=== PATIENT | male | born 2000 | race Caucasian/White ===

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

== ENCOUNTER → 2022-01-17 10:26 | Outpatient (BNVA) | payer OTHER, SELFPAY | PROVIDERS: PCP Nurse Practitioner Family; Visit Provider Nurse Practitioner Family | DX: N52.9 Male erectile dysfunction, unspecified (principal); R68.82 Decreased libido | CPT/HCPCS: 82040; 83001; 83002; 84146; 84270; 84403 ==

== ENCOUNTER 2022-02-22 07:03 | Outpatient (CLI) | payer OTHER, SELFPAY ==
--- NOTE | 2022-02-22 07:20 | XR_ITS ---
WS: [id number] XR thoracic spine 2V [id number] REASON FOR EXAM: Pain FINDINGS: Normal thoracic curvature. No thoracic vertebral body abnormality Normal intervertebral disc spaces. XR/XR thoracic spine 2V [id number] IMPRESSION: No significant abnormality.
== END 2022-02-22 07:04 | disposition home or self-care (01) ==
LOC: RAD 07:05
PROVIDERS: PCP Nurse Practitioner Family; Visit Provider Internal Medicine
DX: M54.6 Pain in thoracic spine (principal); R79.89 Other specified abnormal findings of blood chemistry
CPT/HCPCS: 72070

== ENCOUNTER 2022-02-22 07:03 | Outpatient (CLI) | payer OTHER, SELFPAY ==
--- NOTE | 2022-02-22 07:15 | MR_ITS ---
WS: [id number] MRI HEAD WITHOUT AND WITH GADOLINIUM ENHANCEMENT PITUITARY PROTOCOL. TECHNIQUE: Sagittal T1, T2 axial, T2 axial FLAIR, axial susceptibility weighted imaging, axial diffus ion weighted images, and coronal T2 images were obtained. Pre and post-T1 axial and post T1 coronal i mages. ADC and FSPGR images. High-resolution coronal T1 and T2 and postgadolinium imaging with attent ion to the pituitary. Dynamic pituitary imaging performed. CLINICAL INFORMATION: central hypogonadism COMPARISON: CT November 13, 2020 FINDINGS: No evidence of restricted diffusion to suggest acute ischemia. Ventricular system and basal cisterns are patent. No suspicious intracranial signal abnormalities. Normal posterior fossa. Normal vascular flow voids at the skull base. No extra-axial fluid collections. No evidence of mass or mass effect. M ild mucosal thickening in the ethmoid air cells and frontal sinuses. Polypoid retention cyst or polyp s in the maxillary sinuses with partial opacification. Visualized orbits appear normal. No hemosiderin on the susceptibly weighted images. Normal optic chiasm and pituitary infundibulum. Temporal lobes and hippocampal formations are normal in appearance. Normal cavernous sinuses and Meckel's cave. Pituitary is normal in appearance. Normal enhancing pituitary tissue. No evidence of sellar/supersellar mass. No evidence of hypoenhancing micr oadenoma. No abnormal intracranial enhancement. Normal dural venous sinuses. MR/MR pituitary wo/w con* [id number] IMPRESSION: 1. Pituitary is normal in appearance. No evidence of sellar or suprasellar mas s. No evidence of microadenoma. 2. No suspicious intracranial signal abnormalities. 3. No restricted diffusion to suggest acute ischemia. 4. No hemosiderin on susceptibly weighted images. 5. Prominent retention cysts or polyps in the maxillary sinuses bilaterally wi th partial opacification. 6. No other remarkable findings.
[2022-02-22] MEDS: gadobenate dimeglumine 20 mL vial IV (09:47)
== END 2022-02-22 07:04 | disposition home or self-care (01) ==
LOC: RAD 07:05
PROVIDERS: PCP Nurse Practitioner Family; Visit Provider Internal Medicine
DX: R79.89 Other specified abnormal findings of blood chemistry (principal)
CPT/HCPCS: 70553

== ENCOUNTER 2022-02-23 07:22 | Outpatient (CLI) | payer OTHER, SELFPAY ==
[2022-02-23 08:53] LABS: Ferritin 79 ng/mL (30-400); Homocysteine 5.86; Iron 56 ug/dL (59-158); Prostate Specific Antigen 0.494 ng/mL (0-4); Vitamin B12 568 pg/mL (232-1245)
[2022-02-23 08:56] LABS: Folate Level 12.8 ng/mL (4.5-32.2)
[2022-02-23 09:16] LABS: Testosterone Total 139.6 ng/dL (3-685)
== END 2022-02-23 07:23 | disposition home or self-care (01) ==
PROVIDERS: PCP Nurse Practitioner Family; Visit Provider Internal Medicine
DX: F34.1 Dysthymic disorder (principal); Z83.49 Family history of other endocrine, nutritional and metabolic diseases; R68.82 Decreased libido; R79.89 Other specified abnormal findings of blood chemistry
CPT/HCPCS: 36415; 82607; 82728; 82746; 83090; 83540; 84153; 84403; 84439

== ENCOUNTER 2023-02-26 14:43 | Emergency (ER) | payer BC, SELFPAY ==
[2023-02-26 14:50] VITALS: BP 166/72; PULSE 92; RESP 18; TEMP 36.8; O2SAT 98; BMI 27.1
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
[2023-02-26] MEDS: HYDROcodone-acetaminophen 5-325 mg Tablet 1 TAB PO (18:12)
--- NOTE | 2023-02-27 10:22 | DCPLANNER ---
Addendum entered by Bonnie Small 03/06/23 15:12: Patient did attend appointment scheduled with ortho. Addendum entered by Bonnie Small 02/28/23 11:42: Patient has a follow up appointment scheduled for , March 01, 2023 at 3:15 with Alex Rodarte at ortho. Original Note: branch lending manager had message to schedule a follow up appointment for patient with ortho. branch lending manager sent patients information to the front office staff at ortho. Patients information will be printed and reviewed. Clinic will call patient with appointment information.
== END 2023-02-26 18:28 | disposition home or self-care (01) ==
PROVIDERS: Emergency Provider Nurse Practitioner Family; PCP Family Medicine
DX: S52.125A Nondisplaced fracture of head of left radius, initial encounter for closed fracture (principal); S62.025A Nondisplaced fracture of middle third of navicular [scaphoid] bone of left wrist, initial encounter for closed fracture; V89.2XXA Person injured in unspecified motor-vehicle accident, traffic, initial encounter
CPT/HCPCS: 73080; 73110; 99283

== ENCOUNTER → 2023-03-01 14:56 | Outpatient (BNVA) | payer BC, SELFPAY | PROVIDERS: PCP Family Medicine; Referring Provider Physician Assistant; Visit Provider Physician Assistant | DX: S62.002A Unspecified fracture of navicular [scaphoid] bone of left wrist, initial encounter for closed fracture; S52.125A Nondisplaced fracture of head of left radius, initial encounter for closed fracture; V49.9XXA Car occupant (driver) (passenger) injured in unspecified traffic accident, initial encounter | CPT/HCPCS: 73080; 73110 ==

== ENCOUNTER 2023-03-01 16:13 | Outpatient (CLI) | payer BC, SELFPAY | END 2023-03-01 16:14 | disposition home or self-care (01) | LOC: SPT 16:14 | PROVIDERS: PCP Family Medicine; Visit Provider Physician Assistant | DX: S62.002A Unspecified fracture of navicular [scaphoid] bone of left wrist, initial encounter for closed fracture (principal); X58.XXXA Exposure to other specified factors, initial encounter | CPT/HCPCS: 97760; L3984 ==

== ENCOUNTER 2023-03-06 15:55 | Outpatient (CLI) | payer BC, SELFPAY ==
--- NOTE | 2023-03-06 16:45 | MR_ITS ---
WS: [id number] MRI LEFT ELBOW WITHOUT CONTRAST. COMPARISON: Radiographs 02/26/2023 and 03/01/2023 Multiplanar, multisequence imaging is performed without contrast. Moderate amount of marrow edema in the proximal radius including the radial head, neck and proximal d iaphysis. There is a nondisplaced healing fracture involving the radial neck. Very minimal impaction along the fracture line. No significant displacement. Moderate persistent joint effusion. There is ad ditional small amount of marrow edema in the lateral humeral epicondyle. No fracture is identified. T he common extensor tendon and the radial collateral ligament appear intact. Normal ulnar collateral l igament. No soft tissue abnormalities. IMPRESSION: 1. Healing radial neck fracture without significant displacement. 2. Posttraumatic marrow edema in the lateral humeral epicondyle. No fracture. 3. Moderate-sized joint effusion.
--- NOTE | 2023-03-06 17:30 | MR_ITS ---
WS: [id number] MRI LEFT WRIST WITHOUT CONTRAST. COMPARISON: 03/01/2023 Multiplanar, multisequence imaging is performed without contrast. Moderate amount of marrow edema throughout the scaphoid. Marrow edema is most significant within the mid scaphoid. Edema involves approximately 50% of the scaphoid. There is a nondisplaced fracture in t he proximal third with no displacement. At this point there is no necrosis evident. Scapholunate inte rval is normal. Carpal rows are normal. No additional marrow edema. Distal radius and ulna are normal . No fluid in the distal radial ulnar joint. TFCC appears appropriate. IMPRESSION: Nondisplaced scaphoid fracture in the proximal third with marrow edema throughout nearly 50% of the s caphoid.
== END 2023-03-06 15:56 | disposition home or self-care (01) ==
PROVIDERS: PCP Family Medicine; Visit Provider Physician Assistant
DX: S52.135D Nondisplaced fracture of neck of left radius, subsequent encounter for closed fracture with routine healing (principal); S62.035D Nondisplaced fracture of proximal third of navicular [scaphoid] bone of left wrist, subsequent encounter for fracture with routine healing; X58.XXXD Exposure to other specified factors, subsequent encounter; M25.422 Effusion, left elbow
CPT/HCPCS: 73221

== ENCOUNTER → 2023-03-16 13:45 | Outpatient (BNVA) | payer BC, SELFPAY | PROVIDERS: Visit Provider Family Medicine | DX: R79.89 Other specified abnormal findings of blood chemistry (principal); F90.2 Attention-deficit hyperactivity disorder, combined type; F34.1 Dysthymic disorder; F41.1 Generalized anxiety disorder; F50.81 Binge eating disorder | CPT/HCPCS: 80053; 82040; 83001; 83002; 83036; 84270; 84403; 84439; 84443; 85025 ==

== ENCOUNTER 2023-04-19 13:09 | Outpatient (RCR) | payer BC, SELFPAY | END 2023-05-15 23:59 | disposition home or self-care (01) | LOC: SOT 13:09 | PROVIDERS: Visit Provider Student in an Organized Health Care Education/Training Program | DX: S52.135D Nondisplaced fracture of neck of left radius, subsequent encounter for closed fracture with routine healing (principal); S52.125D Nondisplaced fracture of head of left radius, subsequent encounter for closed fracture with routine healing; X58.XXXD Exposure to other specified factors, subsequent encounter | CPT/HCPCS: 97110; 97165; 97530 ==

== ENCOUNTER → 2023-04-24 09:27 | Outpatient (BNVA) | payer BC, SELFPAY | PROVIDERS: Visit Provider Student in an Organized Health Care Education/Training Program | DX: S62.002D Unspecified fracture of navicular [scaphoid] bone of left wrist, subsequent encounter for fracture with routine healing; S52.132D Displaced fracture of neck of left radius, subsequent encounter for closed fracture with routine healing; X58.XXXD Exposure to other specified factors, subsequent encounter | CPT/HCPCS: 73080; 73110 ==

== ENCOUNTER 2023-04-24 10:48 | Outpatient (CLI) | payer BC, SELFPAY | END 2023-04-24 10:49 | disposition home or self-care (01) | LOC: SPT 10:49 | PROVIDERS: Visit Provider Student in an Organized Health Care Education/Training Program | DX: Z46.89 Encounter for fitting and adjustment of other specified devices (principal); S62.009D Unspecified fracture of navicular [scaphoid] bone of unspecified wrist, subsequent encounter for fracture with routine healing; X58.XXXD Exposure to other specified factors, subsequent encounter | CPT/HCPCS: 97760; L3908 ==

== ENCOUNTER → 2023-05-15 09:49 | Outpatient (BNVA) | payer BC, SELFPAY | PROVIDERS: Visit Provider Student in an Organized Health Care Education/Training Program | DX: S62.002A Unspecified fracture of navicular [scaphoid] bone of left wrist, initial encounter for closed fracture; S52.132A Displaced fracture of neck of left radius, initial encounter for closed fracture; X58.XXXA Exposure to other specified factors, initial encounter | CPT/HCPCS: 73080; 73100 ==

== ENCOUNTER → 2023-07-03 10:04 | Outpatient (BNVA) | payer BC, SELFPAY | PROVIDERS: Visit Provider Student in an Organized Health Care Education/Training Program | DX: S62.002A Unspecified fracture of navicular [scaphoid] bone of left wrist, initial encounter for closed fracture; S52.132A Displaced fracture of neck of left radius, initial encounter for closed fracture; X58.XXXA Exposure to other specified factors, initial encounter | CPT/HCPCS: 73080; 73110 ==

== ENCOUNTER → 2023-08-01 15:20 | Outpatient (BNVA) | payer BC, SELFPAY | PROVIDERS: Visit Provider Family Medicine | DX: R03.0 Elevated blood-pressure reading, without diagnosis of hypertension (principal); R06.02 Shortness of breath | CPT/HCPCS: 71046 ==

== ENCOUNTER 2024-04-07 15:00 | Emergency (ER) | payer BC, SELFPAY ==
[2024-04-07 15:11] VITALS: BP 156/74; PULSE 90; RESP 16; TEMP 36.7; O2SAT 97; BMI 25.0
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
[2024-04-07 15:56] LABS: Basophils # 0.1 10^3/uL (0.0-0.1); Basophils % 1.4 %; Eosinophils # 0.6 10^3/uL (0.0-0.8); Eosinophils % 6.2 %; Hematocrit 41.9 % (37-53); Lymphocytes # 1.3 10^3/uL (0.8-4.8); Lymphocytes % 13.8 %; Mean Corpuscular HGB Conc 34.1 g/dL (30-55); Mean Corpuscular Hemoglobin 30.2 pg (27-33); Mean Corpuscular Volume 88.4 fl (82-101); Mean Platelet Volume 9.8 fL (7.4-10.4); Monocytes # 0.8 10^3/uL (0.2-0.9); Monocytes % 8.3 %; Neutrophils # 6.41 10^3/uL (1.8-7.7); Neutrophils % 70.1 %; Nucleated Red Blood Cells % 0 %; Platelet Count 245 10^3/cmm (157-399); Red Blood Count 4.74 10^6/uL (3.85-5.65); Red Cell Distribution Width 14.1 % (12.1-15.1); White Blood Count 9.15 10^3/uL (3.29-11.43)
[2024-04-07 16:13] LABS: Alanine Aminotransferase 17 U/L (0-41); Albumin Level 4.2 g/dL (3.5-5.2); Alkaline Phosphatase 48 U/L (40-130); Anion Gap 15.1 (5-19); Aspartate Amino Transferase 22 U/L (0-40); Blood Urea Nitrogen 8 mg/dL (6-20); Calcium 9.1 mg/dL (8.5-10.5); Carbon Dioxide 26 mmol/L (22-29); Chloride 105 mmol/L (98-107); Globulin 2.5 g/dL (1.3-4.6); Glomerular Filtration Rate 120.9 mL/min (90-130); Glucose 119 mg/dL (65-115); Osmolality Calculated 293 mOsm/kg (285-295); Potassium 4.1 mmol/L (3.5-5.1); Sodium 142 mmol/L (136-145); Total Bilirubin 0.7 mg/dL (0.15-1.2); Total Protein 6.7 g/dL (6.6-8.7)
[2024-04-07 16:14] LABS: Acetaminophen < 5.0 ug/mL (10-30); Alcohol Level < 10 mg/dL (0-10); Salicylate < 0.3 mg/dL (3-10)
[2024-04-07 17:20] VITALS: BP 149/83; PULSE 89; RESP 16; O2SAT 95
== END 2024-04-07 17:19 | disposition home or self-care (01) ==
PROVIDERS: Emergency Provider Family Medicine
DX: S63.501A Unspecified sprain of right wrist, initial encounter (principal); Z87.891 Personal history of nicotine dependence; S00.81XA Abrasion of other part of head, initial encounter; Y04.8XXA Assault by other bodily force, initial encounter
CPT/HCPCS: 36415; 70450; 73110; 80053; 80307; 85025; 99284

== ENCOUNTER 2025-05-21 07:34 | Emergency (ER) | payer OTHER, SELFPAY ==
[2025-05-21 07:43] VITALS: BP 147/98; PULSE 102; RESP 14; TEMP 36.8; O2SAT 98
--- OUTSIDE RECORDS SUMMARY | 2025-05-21 07:43 | XMS_ITS | Clinical Summary ---
Author Organization [facility] Address [address] [place] [address] Phone Care Team Providers Care Erection Shop Supervisor Name Role Phone Unavailable Primary Care Provider Unavailabl e Allergies Active Allergy Reactions Criticality Noted Date Comments Duloxetine Hypertension Medium 09/17/2023 Sulfa (Sulfonamide Antibiotics) Other (See Comments) 09/17/2023 Only had it in the form of eye drops and said it almost caused me to lose my eye. Medications albuterol sulfate HFA 90 mcg/actuation aerosol inhaler Take 2 Puffs by inhalation every 6 hours as needed for Shortness of Breath or Wheezing. 8.5 Gram 4 Active benzocaine-ment hol (Cepacol Sore Throat, valerie-men,) 15-3.6 mg Lozenge 1 Each by Mouth/Throat route every 2 hours as needed for Pain. 30 Lozenge 4 Active lisdexamfetamin e (Vyvanse) 40 mg capsule Take 1 Capsule (40 mg) by mouth daily in the morning. 30 Capsule 04/02/2024 8:20 PM CDT 4 Active lisdexamfetamin e (VYVANSE) 40 mg capsule Take 1 Capsule (40 mg) by mouth daily in the morning. Max Daily Amount: 40 mg 30 Capsule 05/02/2024 8:29 AM CDT 4 Active lisdexamfetamin e (VYVANSE) 30 mg capsule Take one(1) capsule by mouth daily at noon. 30 Capsule 10/14/2024 11:11 AM CDT Active Active Problems No known active problems Encounters Date Type Department Care Team Description 05/13/2025 External Device Data [facility] Provider, Abstract 05/12/2025 External Device Data [facility] Provider, Abstract 05/06/2025 External Device Data [facility] Provider, Abstract 04/28/2025 External Device Data [facility] Provider, Abstract 03/17/2025 External Device Data [facility] Provider, Abstract 03/03/2025 External Device Data [facility] Provider, Abstract 02/18/2025 External Device Data [facility] Provider, Abstract from Last 3 Months Immunizations Immunization Administration Dates Next Due (ADACEL/BOOSTRIX)(10 YR UP) TDAP VACCINE, 0.5ML, IM 02/22/2023 Social History Tobacco Use Types Packs/Day Years Used Date Smoking Tobacco: Never Smokeless Tobacco: Never Tobacco Cessation:Counseling Given: Not Answered Alcohol Use Standard Drinks/Week Comments Never 0 (1 standard drink = 0.6 oz pur e alcohol) Feeling Safe Answer Date Recorded Are you in a relationship wi th someone who hurts you emotionally and/or physically? 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 Gender Identity Not on file Sexual Orientation Not on file Last Filed Vital Signs Vital Sign Reading Time Taken Comments Blood Pressure 141/76 02/10/2024 2:00 PM CDT Pulse 102 02/10/2024 2:50 PM CDT Temperature 37.9 C (100.3 F) 02/10/2024 2:50 PM CDT Respiratory Rate 16 02/10/2024 11:5 9 AM CDT Oxygen Saturation 98% 02/10/2024 2:50 PM CDT Inhaled Oxygen Concentration - - Weight 89.7 kg (197 lb 12.8 oz) 024 11:59 AM CDT Height 182.9 cm (6') 02/10/2024 11:59 AM CDT Body Mass Index 26.83 02/10/2024 11:59 AM CDT Plan of Treatment Health Maintenance Due Date Last Done Comments HPV VACCINES (1 - Male 3-dose series) 2017 HEPATITIS B VACCINES (1 of 3 - 19+ 3-dose series) 01/14 INFLUENZA VACCINE (#1) 2025 DTAP/TDAP/TD VACCINES (2 - Td or Tdap) 02/22/2033 Insurance RX [employer] Member Subscriber Plan / Payer (Ef fective for All Dates) Name:Mindy Cedeno Relation to Subscriber:Self Name:Mindy Cedeno Subscriber ID:Not on file Payer ID:Not on file Type:Not on file Address: [place] Member Subscriber Plan / Payer (Ef fective 2023-Present) Name:Mindy Cedeno Relation to Subscriber:Self Name:Mindy Cedeno Payer ID:Not on file Group ID:Not on file Type:Other [address] [place]
--- OUTSIDE RECORDS SUMMARY | 2025-05-21 07:43 | XMS_ITS | Encounter Summary ---
Author Organization [facility] Address [address] [place] [address] Care Team Providers Care Central Sterilization Technician Name Role Phone Unavailable Primary Care Provider Unavailabl e Encounter Details Date Type Department Care Team (Late st Contact Info) Description 05/13/2025 External Device Data [facility] Provider, Abstract NO ADDRESS ON FILE Social History Tobacco Use Types Packs/Day Years Used Date Smoking Tobacco: Never Smokeless Tobacco: Never Alcohol Use Standard Drinks/Week Comments Never 0 (1 standard drink = 0.6 oz pur e alcohol) Feeling Safe Answer Date Recorded Are you in a relationship wi th someone who hurts you emotionally and/or physically? 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
--- NOTE | 2025-05-21 07:45 | ED_ITS ---
HPI - Dental/Oral General: Chief complaint: Dental/Oral Stated complaint: Rt side face swollen Time Seen by Provider: 05/21/25 07:35 History of Present Illness: 25-year-old male medical history signifi cant for dental issues in the past and multiple tooth extractions for braces, presenting emergency department with 3- day history of right lower dental pain and a 1 day history starting this morning of external jaw/facial swelling, taking leftover Augmentin from her previous prescription over the last 3 days twice daily without improvement, no fever, able to swallow and speak without issue, no difficulty breathing, no trauma Related Data Previous Rx's ?Medication ?Instructions ?Recorded citalopram 20 mg tablet (Celexa) 20 mg PO DAILY #30 ta bs 04/13/25 trazodone 50 mg tablet 50 mg PO .HS #30 tabs lisdexamfetamine 30 mg capsule 30 mg PO DAILY 30 days #30 caps 04/17/25 lisdexamfetamine 40 mg capsule 40 mg PO QAM 30 days #3 0 caps 04/17/25 clindamycin HCl 300 mg capsule 300 mg PO TID 10 days # 30 caps 05/21/25 (Cleocin HCl) ibuprofen 600 mg tablet 600 mg PO Q6H PRN pain #30 t abs 05/21/25 oxycodone-acetaminophen 5 mg-325 1 tab PO Q6H PRN pain 3 days #12 05/21/25 mg tablet (Percocet) tabs Allergies Allergy/AdvReac Type Severity Reaction Status Date / Time duloxetine (From Cymbalta) Allergy ADR-Chest Verified 04/29/25 13:47 Pain Sulfa (Sulfonamide Allergy ADR-Itching Verified 04/29/25 13:47 Antibiotics) PFS ED PFSH: Medical History Family history of MTHFR deficiency Central hypogonadism Psychiatric care Generalized anxiety disorder Dysthymic disorder Attention-deficit hyperactivity disorder, combined type Surgical History History of tonsillectomy and adenoidectomy No pertinent past surgical history Family History Father Depression Anxiety Mother Hypertension Anxiety ADHD Grandmother Cancer Paternal-breast Other Dementia Diabetes Hyperlipidemia Lung disease Psychiatric illness Stroke Denies family history of CAD (coronary artery disease) Clotting disorder Chronic kidney disease (CKD) Anesthesia complication Bleeding disorder Social History Smoking and tobacco/nicotine status: former use of tobacco/nicotine Alcohol intake: current Alcohol intake frequency: holidays/special occasions only Substance/Drug Use: never Lives independently: Yes Marital status: Single Number of children: 0 Current occupational status: unemployed Special lilia needs: No Agree to transfusion: Yes Physical Exam Narrative: EXAM NARRATIVE: Gen: A&Ox4, no acute distress, nontoxic appearing HEENT: Normocephalic, atraumatic, no scleral icterus, external ears normal, moist mucous membranes, right lower first molar appears cracked with surrounding inflammation, external facial swelling present to the angle of the mandible, no submandibular swelling or inflammation of the salivary gland, no sublingual swelling intraorally Neck: Supple, full range of motion, no observable masses Lungs: No Respiratory distress, Lungs clear to auscultation bilaterally no rales, rhonchi, wheezing CV: Regular rate and rhythm, no murmur, no pitting edema to lower extremities bilaterally Abdomen: Soft, nondistended, nontender to palpation MSK: No joint swelling, FROM all 4 extremities Skin: No rashes, petechiae, lesions. Normal color per patient. Neuro: Alert and oriented, no slurred speech, sensation and strength grossly intact all 4 extremities Psych: Appropriate for situation. MDM - Dental/Oral Medical Decision Making 25-year-old male presenting with dental pain and subsequent infection, on Augmentin x 3 days without improvement, no fever, no airway compromise, no concern for Rusty's angina or sialoadenitis, physical exam showing cracked premolar versus first molar likely source of infection, will switch antibiotic to clindamycin, prescribed pain control, strong recommendation for outpatient dental follow-up for definitive management. Differential Diagnosis Likely gingival abscess, dental caries, toothache and dental abscess No radiology studies performed this visit Discharge Plan Discharge Patient Disposition: Home Clinical Impression: Dental infection Condition: Stable Prescriptions: New clindamycin HCl [Cleocin HCl] 300 mg capsule 300 mg PO TID 10 Days Qty: 30 0RF oxycodone-acetaminophen [Percocet] 5-325 mg tablet 1 tab PO Q6H PRN (Reason: pain) 3 Days Qty: 12 0RF ibuprofen 600 mg tablet 600 mg PO Q6H PRN (Reason: pain) Qty: 30 0RF No Action citalopram [Celexa] 20 mg tablet 20 mg PO DAILY Qty: 30 1RF trazodone 50 mg tablet 50 mg PO .HS Qty: 30 1RF lisdexamfetamine 30 mg capsule 30 mg PO DAILY 30 Days Qty: 30 0RF Rx Instructions: Take at noon. lisdexamfetamine 40 mg capsule 40 mg PO QAM 30 Days Qty: 30 0RF Discharge Orders: Discharge ED (Routine); Ordered 05/21/25 Ordered By: Harvinder Millan Referrals: Yazan De Leon MD [Primary Care Provider, [facility]] Patient Instructions: Opioid Safety, Pain Management, Patient Portal & Lacey Instructions, Dental Abscess (ED) Activity Restrictions/Additional Instructions: You were seen in the emergency department for dental pain with swelling suggestive of an infection, I recommend you take the pain medications and antibiotics as prescribed, it is very important that you follow-up with a dentist as soon as possible for definitive management as the infection will not resolve without dental work. I have included below 1 example of a dental clinic locally but you can follow-up with any that are available soon. [facility] [address] [place] [address], [phone] [email or web address] Print Language: Faroese Coding Level of Care Code ED Generation Engineer for Ambrosio Guardado
[2025-05-21 08:00] VITALS: BP 130/81; PULSE 97; O2SAT 96
== END 2025-05-21 08:01 | disposition home or self-care (01) ==
PROVIDERS: Emergency Provider Student in an Organized Health Care Education/Training Program; PCP Family Medicine
DX: K04.7 Periapical abscess without sinus (principal); Z87.891 Personal history of nicotine dependence
CPT/HCPCS: 96372; 99284; J1885; J9999